=== PATIENT | male | born 1965 | race Caucasian/White ===

== ENCOUNTER 2021-06-01 11:48 | Emergency (ER) | payer BC, SELFPAY ==
--- NOTE | ~2021-06-01 | XR_ITS ---
EXAMINATION: XR chest 2V DATE: 06/01/2021 12:33 INDICATION: Cough. TECHNIQUE: Frontal and lateral views of the chest were obtained on 3 radiographs. COMPARISON: None. FINDINGS: There is interstitial pattern in the lungs, consistent with mild pulmonary edema. No pleura l effusion or pneumothorax. Cardiomegaly is noted. IMPRESSION: 1. Mild pulmonary edema. 2. Cardiomegaly. Reviewed, dictated and finalized at location A.
[2021-06-01 11:58] VITALS: BP 143/100; PULSE 60; RESP 14; TEMP 36.5; O2SAT 98
[2021-06-01 12:02] VITALS: BP 143/100; PULSE 60; RESP 14; TEMP 36.5; O2SAT 98
--- NOTE | 2021-06-01 12:17 | ED.URI ---
HPI - URI/Sore Throat General Chief Complaint: Upper Respiratory Infection Stated Complaint: cough Time Seen by Provider: 06/01/21 12:17 Source: patient and RN notes reviewed Mode of arrival: ambulatory Limitations: no limitations History of Present Illness HPI Narrative: 56-year-old male with history of CHF and atrial fibrillation presents with concern for dry cough for 1-1/2 weeks. He denies nasal congestion, rhinorrhea, sore throat, headache, fever, body aches, chills, sweats. Reports a tickle in the back of his throat causing him to cough. He reports he has been taking Robitussin without resolution of the cough. 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 fib. He denies shortness of breath, edema in any extremity. Reports cough and tickle in his throat worsens when he lays down. MD elicited complaint: cough Related Data Home Medications Medication Instructions Recorded Confirmed rivaroxaban [Xarelto] 10 mg PO DAILY 06/01/21 06/01/21 sacubitril-valsartan [Entresto] 1 tablet PO BID 06/01/21 06/01/21 Allergies Allergy/AdvReac Type Severity Reaction Status Date / Time No Known Allergies Allergy Verified 06/01/21 12:01 Review of Systems Review of Systems: CONSTITUTIONAL: Denies malaise, chills, sweats, or fever. EYES: Denies visual changes, redness, or discharge. ENT: Denies rhinorrhea, congestion, sinus pain, otalgia and sore throat. CARDIOVASCULAR: Denies chest pain, palpitations, or edema. RESPIRATORY: Reports cough. Denies dyspnea. GASTROINTESTINAL: Denies abdominal pain, nausea, vomiting, diarrhea SKIN: Denies rash or itching. MUSCULOSKELETAL: Denies myalgia. NEUROLOGIC: Denies headache. All systems reviewed & are unremarkable except as noted in HPI and below PMFSH Comments At time of signature, agree with nursing past medical, surgical, social and family history. There is no relevant family history pertinent to the presenting complaint Exam Narrative: GENERAL: Well-appearing, well-nourished, and in no acute distress. HEAD: Normocephalic EYES: PERRLA, conjunctivae clear ENT: Nares clear. Mucous membranes moist. Oropharynx not erythematous without lesions. Tonsils not enlarged and without exudate, no drooling, no hoarseness, no trismus, uvula midline. NECK: Supple. No lymphadenopathy CHEST: Clear to auscultation, breath sounds equal. No wheezing, rhonchi, rales, or stridor. No respiratory distress, speaks in full sentences. HEART: Regular rate and irregular rhythm. Murmur heard. SKIN: Warm, dry, no rash. NEURO: Alert and oriented x3. PSYCH: Normal mood and affect Course Course Emergency Course: Discussed patient's case with Dr. Madie Will who concurred that short course of Lasix is appropriate. Patient given instructions to follow-up in emergency room if symptoms worsen or do not improve. Patient also given instructions to call his roofer vinyl coating to alert him of his current condition. Patient is aware of diagnosis, understands and agrees to treatment plan. Anticipatory guidance given. Patient agrees to follow-up as directed and is aware of reasons to seek care at the emergency department. Portions of this record may have been created with voice recognition software Level of Care: Express Care Visit Vital Signs Vital signs: Vital Signs Temperature 97.7 F 06/01/21 11:58 Pulse Rate 60 06/01/21 11:58 Respiratory Rate 14 06/01/21 11:58 Blood Pressure 143/100 H 06/01/21 11:58 Pulse Oximetry 98 06/01/21 11:58 Temperature 97.7 F 06/01/21 12:02 Pulse Rate 60 06/01/21 12:02 Respiratory Rate 14 06/01/21 12:02 Blood Pressure 143/100 H 06/01/21 12:02 Pulse Oximetry 98 06/01/21 12:02 Reviewed. Pt has been instructed to follow up with his primary care provider within the next week regarding his elevated blood pressure today. MDM - URI/Sore Throat MDM Narrative Medical decision making narrative: Differential diagnosis
== END 2021-06-01 13:02 | disposition home or self-care (01) ==
PROVIDERS: Emergency Provider Nurse Practitioner
DX: J81.0 Acute pulmonary edema (principal); I48.91 Unspecified atrial fibrillation; I50.9 Heart failure, unspecified
CPT/HCPCS: 71046; 99213; G0463

== ENCOUNTER 2021-06-12 09:27 | Emergency (ER) | payer BC, SELFPAY ==
--- NOTE | ~2021-06-12 | XR_ITS ---
EXAMINATION: XR chest 2V DATE: 06/12/2021 10:19 INDICATION: Cough TECHNIQUE: PA and lateral views of the chest are obtained. COMPARISON: 06/01/2021 FINDINGS: There is a mild diffuse interstitial pattern. No focal airspace opacities are identified. T here is no pleural effusion or pneumothorax. Cardiomegaly is noted. There is mild thoracic spondylosi s. IMPRESSION: 1. Cardiomegaly with mild pulmonary edema. Reviewed, dictated and finalized at location A.
[2021-06-12 09:32] VITALS: BP 136/100; PULSE 129; RESP 18; TEMP 36.7; O2SAT 100
--- NOTE | 2021-06-12 10:01 | ED.URI ---
HPI - URI/Sore Throat General Chief Complaint: Upper Respiratory Infection Stated Complaint: cough w/mucas Time Seen by Provider: 06/12/21 10:02 Source: patient and RN notes reviewed Mode of arrival: ambulatory Limitations: no limitations History of Present Illness HPI Narrative: 56-year-old male with a history of HTN, CHF, A. fib presented for complaint of productive cough. He was seen in our [facility] care on 06/01 with complaint of a dry cough. At that time the CXR showed mild pulmonary edema, he was prescribed short course of Lasix ([id number]), but he has been taking 40mg daily of his 's Lasix which he found in the car, since that visit. He states this cough is now turned productive of green sputum and states he has to sleep sitting up due to the tickle in his throat worsening at night. He denies any associated shortness of breath, lower extremity edema, dizziness, fatigue, chest pain, palpitations, nausea, sinus congestion, fevers or chills. Blood pressure has been running 140s over 100. He has Lasix which he takes as needed from his hazardous materials handler who he sees in [place], he will be following up when he returns home in 3 to 4 days. He is not vaccinated for COVID or flu. MD elicited complaint: cough Related Data Home Medications Medication Instructions Recorded Confirmed rivaroxaban [Xarelto] 10 mg PO DAILY 06/01/21 06/01/21 sacubitril-valsartan [Entresto] 1 tablet PO BID 06/01/21 06/01/21 Allergies Allergy/AdvReac Type Severity Reaction Status Date / Time No Known Allergies Allergy Verified 06/12/21 09:58 Review of Systems Review of Systems: CONSTITUTIONAL: denies malaise, chills, sweats, fever EYES: Denies visual changes, redness, or discharge ENT: denies rhinorrhea, congestion, sinus pain, otalgia, sore throat CARDIOVASCULAR: Denies chest pain, palpitations, edema RESPIRATORY: Reports cough Denies dyspnea, post nasal drainage. GASTROINTESTINAL: Denies abdominal pain, nausea, vomiting, diarrhea SKIN: Denies rash or itching MUSCULOSKELETAL: denies myalgia NEUROLOGIC: Denies headache Exam Narrative: GENERAL: Well-appearing, well-nourished, and in no acute distress. HEAD: Normocephalic, atraumatic. EYES: EOMI. No redness or drainage. Conjunctivae normal. ENT: Mucous membranes pink and moist. No rhinorrhea. TMs normal bilaterally. Throat normal. Uvula midline. NECK: Normal AROM. Supple. No lymphadenopathy. CHEST: No respiratory distress. Clear to auscultation, diminished RLL HEART: irregular, tachycardic; No murmur appreciated. Normal peripheral pulses. ABDOMEN: Soft, nontender, nondistended, normal active bowel sounds. MUSCULOSKELETAL: No bony tenderness. EXTREMITIES: Normal range of motion. No edema. SKIN: Warm, dry, no rash. Capillary refill normal. Normal skin turgor. NEURO: No focal deficits. Alert and oriented x3. Gait steady. PSYCH: Normal affect. No signs of depression or anxiety. Course Course Emergency Course: Patient is aware of diagnosis, understands and agrees to treatment plan. Anticipatory guidance given. Patient agrees to follow-up as directed and is aware of reasons to seek care at the emergency department. Portions of this record may have been created with voice recognition software Level of Care: Express Care Visit Vital Signs Vital signs: Vital Signs Temperature 98.1 F 06/12/21 09:32 Pulse Rate 129 H 06/12/21 09:32 Respiratory Rate 18 06/12/21 09:32 Blood Pressure 136/100 H 06/12/21 09:32 Pulse Oximetry 100 06/12/21 09:32 Temperature 98.1 F 06/12/21 09:32 Pulse Rate 129 H 06/12/21 09:32 Respiratory Rate 18 06/12/21 09:32 Blood Pressure 136/100 H 06/12/21 09:32 Pulse Oximetry 100 06/12/21 09:32 reviewed MDM - URI/Sore Throat MDM Narrative Medical decision making narrative: Reviewed previous encounter report. CXR showed mild pulmonary edema, he has taken 40mg furosemide daily since 06/01. CXR repeated today. Consistent with previous CXR. He declin
--- NOTE | 2021-06-12 10:28 | PC.NURSE ---
NOTED NO RX IN PHARMACY FOR LASIX 20 MG X 3 DAYS WHICH WAS RX PRESCRIBED BY NET SOFTWARE ENGINEER IN MAY 2021. PT REPORTS HAS BEEN TAKING WIFES LASIX 40 MG PO EVERY DAY SINCE SEEN HERE IN MAY 2021 AND DID NOT GEOSPATIAL INTELLIGENCE ANALYST THAT RX FOR LASIX 20 MG.
== END 2021-06-12 10:42 | disposition home or self-care (01) ==
PROVIDERS: Emergency Provider Nurse Practitioner Family
DX: J81.0 Acute pulmonary edema (principal); I11.0 Hypertensive heart disease with heart failure; I50.9 Heart failure, unspecified; I48.91 Unspecified atrial fibrillation
CPT/HCPCS: 71046; 99213; G0463